=== PATIENT | female | born 2000 | race Two or more races ===

== ENCOUNTER 2024-02-23 18:50 | Emergency (ER) | payer MEDICAID, OTHER ==
[~2024-02-23] VITALS: Ht 160 cm; Wt 47.3 kg
[2024-02-23 19:27] LABS: Urine Bacteria None Seen /hpf (None Seen)
--- NOTE | 2024-02-23 19:33 | ED.PDOC ---
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 Pt states she is currently approx 6 weeks , , 1 miscarriage, states she started to have lower pelvic cramping type pain earlier this AM. Pt states she saw [facility] 1 week prior and states she has normal dated approx 6 weeks and 5 days. Pt states she called OB office today due to her pelvic cramping pain and was referred to the ED for further ultrasound and serum quantitative hCG. Pt expresses concern because she previously miscarried at approximately 6 weeks. Pt in the ED, denies any associated vaginal bleeding. Pt otherwise has associated nausea but otherwise denies vomiting, fever, dysuria, hematuria, headache or d izziness. She does note right flank pain intermittently and states she is currently being treated for a UTI with Keflex. Chief Complaint: pelvic pain Time Seen by MD: 19:30 Allergies: Coded Allergies: NO KNOWN ALLERGIES (Unverified , 02/23/24) Home Meds Active Scripts Nitrofurantoin Monohydrate Mac (Macrobid) 100 Mg Cap, 100 MG PO BID, #14 CAP Prov:SABRINA PATE MD 02/23/24 Acetaminophen (Tylenol Extra Strength) 500 Mg Tab, 1000 MG PO Q6HP PRN, #30 TAB Prov:SABRINA PATE MD 02/23/24 Information Source: Patient, Significant Other Mode of Arrival: Ambulatory Brought in by: significant other Past Medical History PAST MEDICAL HISTORY: Denies Surgical History: Denies all surgeries SUPERINTENDENT FISH HATCHERY History: Denies all SUPERINTENDENT FISH HATCHERY Hx Family History Family History: Reviewed,noncontributory to illness Social History Smoker: Non-Smoker Alcohol: Denies ETOH Use Drugs: Denies Drug Use Lives In: Home Constitutional: denies: chills, diaphoresis, fatigue, fever, malaise, sweats, weakness, others EENTM: denies: blurred vision, double vision, ear bleeding, ear discharge, ear drainage, ear pain, ear ringing, eye pain, eye redness, hearing loss, mouth pain, mouth swelling, nasal discharge, nose bleeding, nose congestion, nose pain, photophobia, tearing, throat pain, throat swelling, voice changes, others Respiratory: denies: cough, hemoptysis, orthopnea, SOB at rest, shortness of breath, SOB with excertion, stridor, wheezing, others Cardiovascular: denies: chest pain, dizzy spells, diaphoresis, Dyspnea on exertion, edema, irregular heart beat, left arm pain, lightheadedness, palpitations, PND, syncope, others Gastrointestinal: reports: nausea, others (pelvic pain); denies: abdomen distended, abdominal pain, blood streaked bowels, constipated, diarrhea, dysphagia, difficulty swallowing, hematemesis, melena, poor appetite, poor fluid intake, rectal bleeding, rectal pain, vomiting Genitourinary: denies: abnormal vagina bleeding, burning, dyspareunia, dysuria, flank pain, frequency, hematuria, incontinence, pain, , vagina discharge, urgency, others Neurological: denies: dizziness, fainting, headache, left sided numbness, left sided weakness, numbness, paresthesia, pre-existing deficit, right sided numbness, right sided weakness, seizure, speech problems, tingling, tremors, weakness, others Musculoskeletal: denies: back pain, gout, joint pain, joint swelling, muscle pain, muscle stiffness, neck pain, others Integumetry: denies: bruises, change in color, change in hair/nails, dryness, laceration, lesions, lumps, rash, wounds, others Allergic/Immunocompromised: denies: Difficulty Healing, Frequent Infections, Hives, Itching, others Hematologic/Lymphatic: denies: anemia, blood clots, easy bleeding, easy bruising, swollen glands, others Endocrine: denies: excessive hunger, excessive sweating, excessive thirst, excessive urination, flushing, intolerance to cold, intolerance to heat, unexplained weight gain, unexplained weight loss, others Psychiatric: denies: anxiety, bipolar disorder, depression, hopeless, panic disorder, schizophrenia, sleepless, suicidal, others All Other Systems: Reviewed and Negative Physical Exam General Appearance: No Apparent Distress, Normal, Thin HEENT: Other (Pupils symmetric, moist mucous membranes) Neck: Full Range of Motion, Normal Inspection Respiratory: Lungs Clear, No Accessory Muscle Use, No Respiratory Distress, Normal Breath Sounds Cardiovascular: No Edema, No JVD, Regular Rate/Rhythm Breast Exam: Deferred Gastrointestinal: Soft, Suprapubic, Tenderness Genitalia: Deferred Pelvic: Deferred Rectal: Deferred Extremities: Normal inspection, Normal range of motion, Non-tender, No pedal edema Neurologic: Alert, Normal Affect, Normal Mood, Other (Ambulatory without difficulty. No gross focal deficit.) Cerebellar Function: NOT DONE Reflexes: NOT DONE Skin: Dry, Normal Color, Warm Lymphatic: NOT DONE Was a procedure done? Was a procedure done?: No Differential Diagnosis (SUPERINTENDENT FISH HATCHERY) Vaginal Bleeding: - Complete, - Incomplete, - Inevitable, - Missed, - Threatened, Cervicitis, Ectopic , UTI, Other (normal , and others) X-Ray, Labs, Meds, VS Vital Signs Date Time Temp Pulse Resp B/P (MAP) Pulse Ox O2 Delivery O2 Flow Rate FiO2 02/23/24 19:40 98.3 83 16 126/81 (96) 100 Lab Test 02/23/24 19:37 02/23/24 19:15 Range/Units White Blood Count 8.8 4.4-10.8 10^3/uL Red Blood Count 4.70 4.0-5.20 10^6/uL Hemoglobin 14.1 12.2-16.2 g/dL Hematocrit 41.8 36.0-46.0 % Mean Corpuscular Volume 88.9 80.0-100.0 fL Mean Corpuscular Hemoglobin 30.0 28.0-32.0 pg Mean Corpuscular Hemoglobin Concent 33.7 32.0-36.0 g/dL Red Cell Distribution Width 14.3 11.8-14.3 % Platelet Count 265 140-450 10^3/uL Mean Platelet Volume 8.5 6.9-10.8 fL Neutrophils (%) (Auto) 63.3 37.0-80.0 % Lymphocytes (%) (Auto) 27.1 10.0-50.0 % Monocytes (%) (Auto) 7.7 0.0-12.0 % Eosinophils (%) (Auto) 1.3 0.0-7.0 % Basophils (%) (Auto) 0.6 0.0-2.0 % Neutrophils # (Auto) 5.6 1.6-8.6 10 ^3/uL Lymphocytes # (Auto) 2.4 0.4-5.4 10 ^3/uL Monocytes # (Auto) 0.7 0-1.3 10 ^3/uL Eosinophils # (Auto) 0.1 0-0.8 10 ^3/uL Basophils # (Auto) 0.1 0-0.2 10 ^3/uL Nucleated Red Blood Cells 0.1 % Sodium Level 138 136-145 mmol/L Potassium Level 3.5 3.5-5.1 mmol/L Chloride Level 105 98-107 mmol/L Carbon Dioxide Level 25 20-31 mmol/L Anion Gap 8 5-15 Blood Urea Nitrogen 10 9-23 mg/dL Creatinine 0.63 0.550-1.02 mg/dL Glomerular Filtration Rate Calc 129 >90 mL/min BUN/Creatinine Ratio 15.9 10.0-20.0 Serum Glucose 80 74-106 mg/dL Calcium Level 10.0 8.7-10.4 mg/dL Beta HCG, Quantitative 3304.0 H 1.5-4.2 mIU/mL Urine Color Light-yellow Yellow Urine Clarity Clear Clear Urine pH 6.0 5.0-9.0 Urine Specific [place] 1.024 1.001-1.035 Urine Protein Negative Negative Urine Ketones 1+ H Negative Urine Blood Negative Negative /uL Urine Nitrite Negative Negative Urine Bilirubin Negative Negative Urine Urobilinogen Normal Negative mg/dL Urine Leukocyte Esterase 3+ Negative /uL Urine RBC <1 0 - 4 /hpf Urine WBC 16 0 - 5 /hpf Urine Squamous Epithelial Cells Few <5 /hpf Urine Bacteria None seen None Seen /hpf Urine Hyaline Casts Few 0 - 2 /lpf Urine Mucus Few None Seen Urine Glucose Normal Normal mg/dL [place] [address] Ph: [phone] DIAGNOSTIC IMAGING Diagnostic Imaging Report : [id number] Signed PATIENT: TRAV WYNN ACCT: [id number] UNIT: [id number] : 2000 LOC: ER ROOM / BED: / AGE / SEX: 23 / F ADM STATUS: REG ER SERVICE 16 ORDERING PHYSICIAN: SABRINA PATE MD PROCEDURE(s): OB4US - OB ULTRASOUND COMP LESS 14WKS REASON: 6 week 5 day , pelvic pain ORDER NUMBER(s): [id number], ACCESSION NUMBER(s): [id number] Procedure: US OB ULTRASOUND COMP LESS 14WKS Study Date and Requested Time: 02/23/2024 08:53 PM Study Description: US OB ULTRASOUND COMP LESS 14WKS History: 6 week 5 day , pelvic pain Comparison: None Technique: Multiple high resolution yousif-scale images obtained of the uterus, fetus, and other gestational components with M-mode scanning for evaluation of heart rate. Findings: There is sonolucent intrauterine area measuring up to 0.4 cm which may represent an early gestational sac. No yolk sac or pole is visualized. Uterus measures 6.8 x 4.6 x 4.9 cm in size. Cervical os appears closed. Right ovary measures 3.4 x 2.3 x 3.5 cm with 1.8 cm cyst. Left ovary measures 2.1 x 2.2 x 2.4 cm with 0.5 cm cyst. Normal ovarian color Doppler flow bilaterally. There is moderate amount of free fluid within the pelvis. Impression: 0.4 cm intrauterine sonolucent area which may represent an early gestational sac with no yolk sac or pole visualized. Recommend correlation with beta HCG and ultrasound as clinically indicated. An ectopic can not be excluded. 1.8 cm right ovarian cyst/dominant follicle. Moderate amount of free fluid within the cul-de-sac. ATED BY: CONCHA NOGUERA DO X-Ray, Labs, Meds, VS Comment 23-year-old female with a history of prior miscarriage and current approximate 6 week 5 day complaining of pelvic pain Vitals unremarkable Exam remarkable for suprapubic tenderness Rhythm strip independently interpreted by me: Sinus rhythm, rate 83, no ectopy. Ob ultrasound: Impression: 0.4 cm intrauterine sonolucent area which may represent an early gestational sac with no yolk sac or pole visualized. Recommend correlation with beta HCG and ultrasound as clinically indicated. An ectopic can not be excluded. 1.8 cm right ovarian cyst/dominant follicle. Moderate amount of free fluid within the cul-de-sac. CBC, basic metabolic panel unremarkable Serum quantitative hCG 3304 UA abnormal consistent with possible partially treated UTI Patient was treated with the following in the ED: Rocephin 1 g IM, Tylenol 1 g p.o. On re-evaluation, patient stated she was not having cramping. Abdominal exam was benign. Hospitalization was considered, however patient was well-appearing and workup was essentially unremarkable other than a persistent UTI. Patient was advised to continue Keflex until finished. I will prescribe Macrobid. Patient also advised to follow-up with her OBGYN in 1-2 days for re-evaluation. Rx Tylenol, Macrobid Time of 1ST Reevaluation: 20:00 Reevaluation 1ST: Unchanged Patient Education/Counseling: Diagnosis, Treatment Family Education/Counseling: Diagnosis, Treatment Departure 1 Departure Time of Disposition: 22:02 Impression: Primary Impression: Urinary tract infection Qualified Codes: N39.0 - Urinary tract infection, site not specified Additional Impression: Abdominal pain affecting Disposition: HOME / SELF CARE / HOMELESS Condition: Stable Additional Instructions: Your blood tests were unremarkable. Your serum quantitative hCG was 3304. Your urine test was abnormal, indicating a partially treated UTI. Continue Keflex until finished. I have prescribed an additional antibiotic treatment of your UTI. Your ultrasound showed a possible early intrauterine , however the fetus was not visualized. It may be too early to see the fetus. Report is below. Follow-up with your OBGYN in 2-3 days for repeat ultrasound and repeat serum quantitative hCG. [place] [address] Ph: [phone] DIAGNOSTIC IMAGING Diagnostic Imaging Report : [id number] Signed PATIENT: TRAV WYNN ACCT: [id number] UNIT: [id number] : 2000 LOC: ER ROOM / BED: / AGE / SEX: 23 / F ADM STATUS: REG ER SERVICE 16 ORDERING PHYSICIAN: SABRINA PATE MD PROCEDURE(s): OB4US - OB ULTRASOUND COMP LESS 14WKS REASON: 6 week 5 day , pelvic pain ORDER NUMBER(s): [id number], ACCESSION NUMBER(s): [id number] Procedure: US OB ULTRASOUND COMP LESS 14WKS Study Date and Requested Time: 02/23/2024 08:53 PM Study Description: US OB ULTRASOUND COMP LESS 14WKS History: 6 week 5 day , pelvic pain Comparison: None Technique: Multiple high resolution yousif-scale images obtained of the uterus, fetus, and other gestational components with M-mode scanning for evaluation of heart rate. Findings: There is sonolucent intrauterine area measuring up to 0.4 cm which may represent an early gestational sac. No yolk sac or pole is visualized. Uterus measures 6.8 x 4.6 x 4.9 cm in size. Cervical os appears closed. Right ovary measures 3.4 x 2.3 x 3.5 cm with 1.8 cm cyst. Left ovary measures 2.1 x 2.2 x 2.4 cm with 0.5 cm cyst. Normal ovarian color Doppler flow bilaterally. There is moderate amount of free fluid within the pelvis. Impression: 0.4 cm intrauterine sonolucent area which may represent an early gestational sac with no yolk sac or pole visualized. Recommend correlation with beta HCG and ultrasound as clinically indicated. An ectopic can not be excluded. 1.8 cm right ovarian cyst/dominant follicle. Moderate amount of free fluid within the cul-de-sac. ATED BY: CONCHA NOGUERA DO e-Prescriptions Nitrofurantoin Monohydrate Mac (Macrobid) 100 Mg Cap 100 MG PO BID, #14 CAP Prov: SABRINA PATE MD 02/23/24 Acetaminophen (Tylenol Extra Strength) 500 Mg Tab 1000 MG PO Q6HP PRN, #30 TAB Prov: SABRINA PATE MD 02/23/24 Discharged With: Spouse Critical Care Note Critical Care Time?: No Stability Stability form required: No Heart Score Heart Score: Heart Score Response (Comments) Value History N/A 0 EKG N/A 0 Age N/A 0 Risk Factors N/A 0 Troponin N/A 0 Total 0 I personally scribed for SABRINA PATE MD ([email or web address]) on 02/23/24 at 19:33. Electronically submitted by Sami Lang ([email or web address]). SABRINA PATE MD Feb 23, 2024 19:33
[2024-02-23 19:51] LABS: Urine Blood Negative /uL (Negative); Urine Clarity Clear (Clear); Urine Color Light-Yellow (Yellow); Urine Hyaline Cast FEW /lpf (0 - 2); Urine Mucus FEW (None Seen); Urine Protein, UAD Negative (Negative); Urine Specific Gravity 1.024 (1.001-1.035); Urine Urobilinogen Normal (Negative); Urine WBC 16 /hpf (0 - 5)
[2024-02-23 20:06] LABS: Basophils # (auto) 0.1 10 ^3/uL (0-0.2); Basophils % (auto) 0.6 % (0.0-2.0); Eosinophils # (auto) 0.1 10 ^3/uL (0-0.8); Eosinophils % (auto) 1.3 % (0.0-7.0); Hematocrit 41.8 % (36.0-46.0); Hemoglobin 14.1 g/dL (12.2-16.2); Lymphocytes # (auto) 2.4 10 ^3/uL (0.4-5.4); Lymphocytes % (auto) 27.1 % (10.0-50.0); Mean Corpuscular Hgb Conc. 33.7 g/dL (32.0-36.0); Mean Corpuscular Volume 88.9 fL (80.0-100.0); Monocytes # (auto) 0.7 10 ^3/uL (0-1.3); Monocytes % (auto) 7.7 % (0.0-12.0); Neutrophils # (auto) 5.6 10 ^3/uL (1.6-8.6); Neutrophils % (auto) 63.3 % (37.0-80.0); Nucleated Red Blood Cells % 0.1 %; Platelet Count (auto) 265 10^3/uL (140-450); Red Cell Distribution Width 14.3 % (11.8-14.3); White Blood Cell 8.8 10^3/uL (4.4-10.8)
[2024-02-23 20:09] LABS: Chloride 105 mmol/L (98-107); Sodium 138 mmol/L (136-145)
[2024-02-23 20:10] LABS: Anion Gap 8 (5-15); Carbon Dioxide 25 mmol/L (20-31)
[2024-02-23] MEDS ORDERED: NITR-87 PO (20:10)
[2024-02-23] MEDS ORDERED: ACET-1304 PO (20:10)
[2024-02-23 20:15] LABS: BUN/Creatinine Ratio 15.9 (10.0-20.0); Blood Urea Nitrogen 10 mg/dL (9-23); Glucose 80 mg/dL (74-106)
[2024-02-23 20:23] LABS: Potassium 3.5 mmol/L (3.5-5.1)
--- NOTE | 2024-02-23 22:04 | DVH ---
Procedure: US OB ULTRASOUND COMP LESS 14WKS Study Date and Requested Time: 02/23/2024 08:53 PM Study Description: US OB ULTRASOUND COMP LESS 14WKS History: 6 week 5 day , pelvic pain Comparison: None Technique: Multiple high resolution yousif-scale images obtained of the uterus, fetus, and other gestat ional components with M-mode scanning for evaluation of heart rate. Findings: There is sonolucent intrauterine area measuring up to 0.4 cm which may represent an early gestational sac. No yolk sac or pole is visualized. Uterus measures 6.8 x 4.6 x 4.9 cm in size. Cervical os appears closed. Right ovary measures 3.4 x 2.3 x 3.5 cm with 1.8 cm cyst. Left ovary measures 2.1 x 2.2 x 2.4 cm with 0.5 cm cyst. Normal ovarian color Doppler flow bilaterally. There is moderate amount of free fluid within the pelvis. Impression: 0.4 cm intrauterine sonolucent area which may represent an early gestational sac with no yolk sac or pole visualized. Recommend correlation with beta HCG and ultrasound as clinically indicated. An ectopic can not be excluded. 1.8 cm right ovarian cyst/dominant follicle. Moderate amount of free fluid within the cul-de-sac.
[2024-02-24 00:05] VITALS: BP 122/72; PULSE 105; RESP 12; TEMP 99.6; O2SAT 100
[2024-02-24] MEDS: cefTRIAXone SOD 1,000 MG VL IM ONE (00:13)
[2024-02-24] MEDS: ACETAMINOPHEN 500 MG TAB or CAP PO ONE (00:13)
== END 2024-02-24 00:23 | disposition home or self-care (01) ==
LOC: ER 18:50
DX: O23.41 Unspecified infection of urinary tract in pregnancy, first trimester (principal); O99.611 Diseases of the digestive system complicating pregnancy, first trimester; R10.2 Pelvic and perineal pain; Z3A.01 Less than 8 weeks gestation of pregnancy; Z79.899 Other long term (current) drug therapy
CPT/HCPCS: 36415; 76801; 76817; 80048; 81001; 84702; 85025; 96372; 99285; J0696